=== PATIENT | female | born 1990 | race Asian ===

== ENCOUNTER 2017-11-22 04:54 | Emergency (ER) | payer OTHER ==
[~2017-11-22] VITALS: Ht 167.6 cm; Wt 56.7 kg
--- NOTE | 2017-11-22 05:17 | NUR ---
pt bib boyfriend. pt c/o left jaw numbness and left arm numbness s/p being out drinking with friends. pt is a/ox4, verbal, able to make needs known. heart rate is tachy 130. O2 100% on RA. R 22. Temp 98.9F. BP 155/105. pt being seen by md at bedside.
--- NOTE | 2017-11-22 05:20 | NUR ---
ekg being done at bedside
[2017-11-22] MEDS ORDERED: LORAZEPAM INJ 2 MG/ML VIAL ONE (05:41)
--- NOTE | 2017-11-22 05:50 | NUR ---
ativan 0.5mg given IM on rt arm
[2017-11-22] MEDS ORDERED: LORAZEPAM INJ 2 MG/ML VIAL IM ONE (06:00)
--- NOTE | 2017-11-22 06:07 | NUR ---
vs stable. BP 141/96. HR 98. R 16. O2 100% on RA. Pt stating the numbness in the jaw has gone, but still feels the numbness on her left shoulder.
[2017-11-22 06:15] VITALS: BP 140/95
--- NOTE | 2017-11-22 06:16 | NUR ---
Patient discharged to home in stable condition. Written and verbal after care instructions given. Patient verbalizes understanding of instruction. Instructed not to drive. Boyfriend at bedside will drive pt home. Pt left walking with steady gait. No s/s of acute distress or sob noted. vs stable.
== END 2017-11-22 06:18 | disposition home or self-care (01) ==
LOC: ER 04:56
DX: F41.9 Anxiety disorder, unspecified (principal); R00.0 Tachycardia, unspecified
CPT/HCPCS: 93005; 96372; 99284; A4606; J2060; Z7610

== ENCOUNTER 2020-03-24 02:34 | Emergency (ER) | payer OTHER ==
[~2020-03-24] VITALS: Ht 170.2 cm; Wt 66.2 kg
--- NOTE | 2020-03-24 02:50 | NUR ---
presented to the er for evaluation of R hand laceration with wine bottle. last TDAP around 7 years ago
[2020-03-24] MEDS ORDERED: TDAP [DIPH/PERTUSSIS/TET] 0.5 ML VIAL IM ONE (02:52)
[2020-03-24] MEDS ORDERED: LIDOCAINE 1% INJ 50 ML MDV IJ ONE (02:52)
--- NOTE | 2020-03-24 02:59 | NUR ---
x ray at bed side
[2020-03-24] MEDS: TDAP [DIPH/PERTUSSIS/TET] 0.5 ML VIAL IM ONE (03:16)
--- NOTE | 2020-03-24 03:39 | NUR ---
MD AT BEDSIDE FOR SUTURES
[2020-03-24 04:35] VITALS: BP 121/76
--- NOTE | 2020-03-24 04:35 | NUR ---
Patient discharged to home in stable condition. Written and verbal after care instructions given. Patient verbalizes understanding of instruction. Pt ambulated out of E.D. vss.
== END 2020-03-24 04:36 | disposition home or self-care (01) ==
LOC: ER 02:35
DX: S61.210A Laceration without foreign body of right index finger without damage to nail, initial encounter (principal); S61.212A Laceration without foreign body of right middle finger without damage to nail, initial encounter; W25.XXXA Contact with sharp glass, initial encounter; Y93.89 Activity, other specified; Y92.89 Other specified places as the place of occurrence of the external cause; Y99.8 Other external cause status
CPT/HCPCS: 12002; 73130; 90471; 90715; 99283; A6403 ×2; J3490